=== PATIENT | male | born 1970 | race African-American/Black ===

== ENCOUNTER 2016-05-08 15:06 | Emergency (ER) | payer MEDICAID ==
[~2016-05-08] VITALS: Ht 182.9 cm; Wt 92.0 kg
[~2016-05-08 15:06] MED LIST: NOCURR
[2016-05-08] MEDS ORDERED: PRAMOXINE/HYDROCORTISONE 10 GM FOAM TP ONE (18:30)
[2016-05-08] MEDS ORDERED: KETOROLAC TROMETHAMINE 60 MG/2 ML VIAL IM ONE (18:30)
[2016-05-08 18:57] VITALS: BP 138/80
== END 2016-05-08 19:05 | disposition home or self-care (01) ==
LOC: EMS 15:08
DX: K64.4 Residual hemorrhoidal skin tags (principal)
CPT/HCPCS: 96372; 99283; J1885